=== PATIENT | male | born 1980 | race Caucasian/White ===

== ENCOUNTER 2017-05-16 12:25 | Emergency (ER) | payer BC ==
[~2017-05-16] VITALS: Ht 185.4 cm; Wt 81.6 kg
--- NOTE | 2017-05-16 13:15 | NUR ---
Patient discharged to home in stable conditon. Written and verbal after care instructions given. Patient verbalizes understanding of instructions.
--- NOTE | 2017-05-16 13:15 | NUR ---
pt walks in steady gait. pt refuses the back to be scanned
[2017-05-16 13:16] VITALS: BP 139/89
== END 2017-05-16 13:16 | disposition home or self-care (01) ==
LOC: ER 12:25
DX: S61.412A Laceration without foreign body of left hand, initial encounter (principal); W10.9XXA Fall (on) (from) unspecified stairs and steps, initial encounter; Y93.89 Activity, other specified; Y92.9 Unspecified place or not applicable; Y99.9 Unspecified external cause status
CPT/HCPCS: 12001; 90471; 90715; 99283; A4663